=== PATIENT | female | born 1960 | race Caucasian/White ===

== ENCOUNTER 2018-01-17 09:40 | Emergency (ER) | payer BC ==
[2018-01-17 09:45] VITALS: BP 120/72; BMI 27.4
--- NOTE | 2018-01-18 06:02 | DR.FBACK ---
HPI - PCP Primary Care Physician: RAY - Complaint Chief Complaint:: PT. C/O LOWER BACK PAIN THAT RADIATES UP TOWARDS HER RIBS. PT. ALSO C/O LEFT CHEST WALL CRAMPING. PT. STATES SOMETIMES IT FEELS LIKE SHE CAN'T GET ENOUGH OXYGEN. PT. DENIES INJURY. - Reviewed Nurses Notes Review: Yes - Source History Provided: Patient - Mode of Arrival Mode of Arrival: Ambulatory - Timing Onset of Chief Complaint: 01/07/18 PMH - PMH Past Medical History: Yes Past Medical History: Depression, Diabetes, GERD, Hypertension Past Surgical History: Yes Surgical History: Appendectomy, Cholecystectomy, Hysterectomy, Tonsillectomy, Other Past Surgical History Comment: LEFT FOOT, LEFT HAND, LEFT HIP - Family History History of Family Medical Conditions: Yes Family Medical History: Diabetes Mellitus, CO, Coronary Artery Disease, Hypertension - Social History Does patient currently use any type of tobacco product: No Have you used tobacco products in the last 12 months: No Type of Tobacco Use: None Does any household member use tobacco: No Alcohol Use: None Do you use any recreational Drugs:: No Lives With: Alone Lives Where: Home - infectious screening In the last 2 months have you had wt loss of >10#?: NO Have you had fever, night sweats or hemotysis?: No Have you traveled outside the country in the last 6 months?: No Isolation: Standard PE - Vitals Vital Signs: Temp Pulse Resp BP Pulse Ox 01/17/18 09:41 97.0 F L 84 17 120/72 98 - Discharge Plan Disposition: 07 AGAINST MEDICAL ADVICE Condition: Stable - Follow ups/Referrals Follow ups/Referrals: YASMEEN BELL [Primary Care Provider] - 3 days - Instructions
== END 2018-01-17 11:39 | disposition left against medical advice (07) ==
LOC: ER 09:56
DX: M54.5 Low back pain (principal)
CPT/HCPCS: 99281